=== PATIENT | male | born 1955 | race Caucasian/White ===

== ENCOUNTER 2021-11-17 03:50 | Emergency (ER) | payer OTHER ==
[~2021-11-17] VITALS: Ht 162.6 cm; Wt 97.5 kg
[~2021-11-17 03:50] MED LIST: ALBU0.0912 IH; ARIP5TAB8 PO; ASPI81CT95 PO; BEN50 PO; CEPH250C16 PO; CITA10TA11 PO; FLUT1DSK4 PO; LEVE750T3 PO; LISI10TA30 PO; LOVA10TA2 PO; TRAM50TA1 PO
--- NOTE | 2021-11-17 03:51 | NUR ---
PT JORDAN BLS TO BED 07.
[2021-11-17 03:54] VITALS: BP 104/78
--- NOTE | 2021-11-17 04:28 | NUR ---
65 Y/O MALE BIBA FOR SCALP PAIN DUE TO "FLEAS" . PT STATES THERE IS INSECTS ON HIM. PT SON CALLED AMBULANCE DUE TO PT REQUEST. PT HAS HC OF HALLUCINATIONS. PT HAS SOME SCRATCHES ON TOP OF SCALP. UPON ASSESSMENT NO INSECTS OR FLEAS . PT HAS HX OF SCHICOPHRENIA, PSCHOSIS, PARKINSONS, DM2, HTN, COPD RX: PT DENIES ALLERGIES: DENIES. PT LIVES AT HOME
--- NOTE | 2021-11-17 05:00 | NUR ---
Dr. Peña examining patient.
[2021-11-17] MEDS ORDERED: HALOPERIDOL IM 5 MG/ML VIAL IM ONE (05:10)
--- NOTE | 2021-11-17 05:43 | NUR ---
PROVIDED PT WATER . PT UNABLE TO URINATE
[2021-11-17 06:50] VITALS: BP 99/54
--- NOTE | 2021-11-17 06:52 | NUR ---
PT STILL MT ABLE TO URINATE . PT STATES HE FEELS LIKE THERE IS SOMETHING ONHIS HEAD
--- NOTE | 2021-11-17 07:30 | NUR ---
REPORT RECEIVED FROM FLOR MORENO. ASSUMED CARE AT THIS TIME
--- NOTE | 2021-11-17 07:40 | NUR ---
PT UNABLE TO URINATE
--- NOTE | 2021-11-17 07:46 | NUR ---
PT CALLED AND MADE AWARE OF PT DISCHARGE
--- NOTE | 2021-11-17 07:46 | NUR ---
TO BRING WALKER
--- NOTE | 2021-11-17 07:50 | NUR ---
Patient discharged with v/s stable. Written and verbal after care instructions given and explained. Patient verbalized understanding. Wheel Chair Assisted TO LOBBY. All questions addressed prior to discharge. Advised to follow up with PMD. PT MADE AWARE OF DISCHARGE AND TO BRING PT WALKER
--- NOTE | 2021-11-17 07:51 | NUR ---
The patient's care was reviewed and supervised by Terrie Joseph RN.
== END 2021-11-17 07:51 | disposition home or self-care (01) ==
LOC: MED 03:50
DX: R44.2 Other hallucinations (principal); J45.909 Unspecified asthma, uncomplicated; I10 Essential (primary) hypertension; Z98.890 Other specified postprocedural states
CPT/HCPCS: 96372; 99283; J1630